=== PATIENT | female | born 2000 | race Asian ===

== ENCOUNTER 2022-04-01 08:02 | Emergency (ER) | payer OTHER, SELFPAY ==
[2022-04-01 08:12] VITALS: BP 124/79; PULSE 88; RESP 14; TEMP 36.2; O2SAT 98; BMI 24.5
[2022-04-01 08:24] LABS: MANUAL DIFF FLAG NO
[2022-04-01 08:25] LABS: Basophils Absolute Auto 0.1 X10*3/uL (0.0-0.2); Basophils Percent Auto 0.5 % (0-2); Eosinophils Absolute Auto 0.2 X10*3/uL (0.0-0.4); Eosinophils Percent Auto 1.7 % (0-4); Hematocrit 38.8 % (37.0-47.0); Hemoglobin 12.4 g/dl (12.0-16.0); Imm Gran Abs Auto 0.03 X10*3/uL (0.00-0.03); Imm Gran Pct Auto 0.3 % (0.0-0.4); Lymphocytes Absolute Auto 2.5 X10*3/uL (1.2-4.9); Lymphocytes Percent Auto 26.9 % (20-40); Mean Corpuscular Hemoglobin 26.4 pg (27.0-33.0); Mean Corpuscular Volume 82.7 fL (80.0-98.0); Mean Platelet Volume 12.4 fL (9.4-12.3); Monocytes Absolute Auto 0.6 X10*3/uL (0.1-1.2); Monocytes Percent Auto 6.6 % (2-11); Neutrophils Absolute Auto 5.9 x10*3/uL (2.0-8.3); Platelet Count 216 X10*3/uL (160-400); Red Blood Count 4.69 X10*6/uL (4.20-5.50); White Blood Count 9.3 X10*3/uL (4.8-10.8)
[2022-04-01 08:48] LABS: Alanine Aminotransferase 8 U/L (0-31); Albumin Level 4.4 g/dL (3.5-5.0); Alkaline Phosphatase 94 U/L (39-117); Anion Gap 13 (12-20); Aspartate Amino Transferase 15 U/L (5-31); Bilirubin Direct < 0.2 mg/dL (0.0-0.5); Bilirubin Total 0.6 mg/dL (0.0-1.0); Blood Urea Nitrogen 9 mg/dL (9-16); Calcium 9.5 mg/dL (8.4-10.2); Carbon Dioxide 23 mmol/L (22-29); Chloride 106 mmol/L (96-108); Creatinine Clr Calc Pharmacy 108.7; Estimated Glomerular Filt Rate > 60; Glucose Random 105 mg/dL (60-115); Lipase 16 U/L (8-78); Potassium 4.4 mmol/L (3.3-5.1); Sodium 138 mmol/L (135-145); Total Protein 7.1 g/dL (6.5-8.0)
[2022-04-01 09:46] LABS: Appearance Urine Clear; Color Urine Yellow; Glucose Urine UA Negative (Negative); Leukocyte Esterase Urine Negative (Negative); Nitrite Urine Negative (Negative); Specific Gravity - Urine >= 1.030 (1.005-1.025); Urine Blood Negative (Negative); Urine Ketones Negative (Negative); Urine Protein Negative (Neg-Trace)
[2022-04-01 09:47] LABS: UPreg QC Valid YES; Urine Pregnancy NEGATIVE (NEGATIVE)
[2022-04-01 10:35] VITALS: BP 107/69; PULSE 87; RESP 16; TEMP 36.7; O2SAT 100
--- NOTE | 2022-04-01 10:43 | ED_ITS ---
HPI - Abdominal Pain General Chief Complaint: Abdominal Pain Stated Complaint: stomach pains Time Seen by Provider: 04/01/22 09:52 Source: patient Mode of arrival: ambulatory History of Present Illness HPI narrative: 22-year-old female without significant past medical history other than a C- section 7 months ago presents with sharp mid suprapubic pain at that has not been associated with any fever, chills, nausea, vomiting, diarrhea, urinary pain/burning/frequency. Patient also denies any vaginal discharge but states that she is ?late on her period?. And although she has said this she then states that she has not had sexual intercourse in months. Related Data Allergies Allergy/AdvReac Type Severity Reaction Status Date / Time No Known Allergies Allergy Verified 04/01/22 08:15 Review of Systems Review of Systems Pertinent positives and negatives as stated in HPI 10 point review of systems ot herwise negative. PMFSH Past Medical History Source: nursing notes reviewed Medical History delivery delivered No known health problems Social History Social History Smoked in Last 30 Days: No Use of substances other than those prescribed or required for medical reasons: No Advance Directives: No Advance Directives Information Provided: Yes Patient : No Physical Exam ED Vital Signs: Vital Signs - 24 hr 04/01/22 08:12 04/01/22 10:35 Temperature 97.2 F 98.1 F Pulse Rate 88 87 Respiratory Rate 14 16 Blood Pressure 124/79 107/69 Pulse Oximetry 98 100 Oxygen Delivery Method Room Air Room Air BMI result Body Mass Index 24.5 VITAL SIGNS: Reviewed. GENERAL: Well developed, well nourished, in no acute distress. HEAD: Normocephalic/atraumatic EYES: PERRLA, EOMI LUNGS: Normal breath sounds. No adventitious sounds or accessory muscle use. SpO2<100> CARDIOVASCULAR: Regular rate and rhythm without noted murmurs ABDOMEN: Soft, non-tender, non-distended with bowel sounds. NEUROLOGIC: Alert and oriented x 4. Strength and sensation to light touch were grossly intact x 4. Medical Decision Making Medical Decision Making MDM Narrative: 22-year-old female with suprapubic pain and I have reviewed all investigations and my interpretation is that this may be related to musculoskeletal in nature as there is no evidence to suggest ectopic, UTI, traumatic, appendicitis, ovarian torsion. Patient was informed of all results and findings and d ischarged home in stable condition. She has follow-up with her primary care provider on . Differential Diagnosis Please see the discussion above Lab Data MDM Lab Attestation statement: I reviewed the patient's lab results. Please see the discussion above 04/01/22 08:20 04/01/22 08:20 Labs: Lab Results 04/01/22 04/01/22 04/01/22 Range/Units 08:20 08:20 09:38 WBC 9.3 (4.8-10.8) X10*3/uL RBC 4.69 (4.20-5.50) X10*6/uL Hgb 12.4 (12.0-16.0) g/dl Hct 38.8 (37.0-47.0) % MCV 82.7 (80.0-98.0) fL MCH 26.4 L (27.0-33.0) pg MCHC 32.0 (31.0-35.0) g/dl RDW 14.0 (11.0-16.0) % Plt Count 216 (160-400) X10*3/uL MPV 12.4 H (9.4-12.3) fL Immature Gran % (Auto) 0.3 (0.0-0.4) % Neut % (Auto) 64.0 (45-73) % Lymph % (Auto) 26.9 (20-40) % [place] % (Auto) 6.6 (2-11) % Eos % (Auto) 1.7 (0-4) % Baso % (Auto) 0.5 (0-2) % Lymph # (Auto) 2.5 (1.2-4.9) X10*3/uL [place] # (Auto) 0.6 (0.1-1.2) X10*3/uL Eos # (Auto) 0.2 (0.0-0.4) X10*3/uL Baso # (Auto) 0.1 (0.0-0.2) X10*3/uL Abs Immat Gran (auto) 0.03 (0.00-0.03) X10*3/uL Absolute Neuts (auto) 5.9 (2.0-8.3) x10*3/uL Absolute Nucleated RBC 0.000 (0.0-0.012) X10*3/uL Nucleated RBC % (auto) 0.0 (0.0-0.2) /100WBC Sodium 138 (135-145) mmol/L Potassium 4.4 (3.3-5.1) mmol/L Chloride 106 (96-108) mmol/L Carbon Dioxide 23 (22-29) mmol/L Anion Gap 13 (12-20) BUN 9 (9-16) mg/dL Creatinine 0.73 (0.5-1.4) mg/dL Estim Creat Clear Calc 108.7 Estimated GFR > 60 Random Glucose 105 (60-115) mg/dL Calcium 9.5 (8.4-10.2) mg/dL Total Bilirubin 0.6 (0.0-1.0) mg/dL Direct Bilirubin < 0.2 (0.0-0.5) mg/dL AST 15 (5-31) U/L ALT 8 (0-31) U/L Alkaline Phosphatase 94 (39-117) U/L Total Protein 7.1 (6.5-8.0) g/dL Albumin 4.4 (3.5-5.0) g/dL Lipase 16 (8-78) U/L Urine Color Yellow Urine Appearance Clear Urine pH 6.0 (5.0-9.0) Ur Specific [place] >= 1.030 H (1.005-1.025) Urine Protein Negative (Neg-Trace) mg/dL Urine Glucose (UA) Negative (Negative) mg/dL Urine Ketones Negative (Negative) mg/dL Urine Blood Negative (Negative) Urine Nitrite Negative (Negative) Ur Leukocyte Esterase Negative (Negative) Urine Test (NEGATIVE) 04/01/22 Range/Units 09:38 WBC (4.8-10.8) X10*3/uL RBC (4.20-5.50) X10*6/uL Hgb (12.0-16.0) g/dl Hct (37.0-47.0) % MCV (80.0-98.0) fL MCH (27.0-33.0) pg MCHC (31.0-35.0) g/dl RDW (11.0-16.0) % Plt Count (160-400) X10*3/uL MPV (9.4-12.3) fL Immature Gran % (Auto) (0.0-0.4) % Neut % (Auto) (45-73) % Lymph % (Auto) (20-40) % [place] % (Auto) (2-11) % Eos % (Auto) (0-4) % Baso % (Auto) (0-2) % Lymph # (Auto) (1.2-4.9) X10*3/uL [place] # (Auto) (0.1-1.2) X10*3/uL Eos # (Auto) (0.0-0.4) X10*3/uL Baso # (Auto) (0.0-0.2) X10*3/uL Abs Immat Gran (auto) (0.00-0.03) X10*3/uL Absolute Neuts (auto) (2.0-8.3) x10*3/uL Absolute Nucleated RBC (0.0-0.012) X10*3/uL Nucleated RBC % (auto) (0.0-0.2) /100WBC Sodium (135-145) mmol/L Potassium (3.3-5.1) mmol/L Chloride (96-108) mmol/L Carbon Dioxide (22-29) mmol/L Anion Gap (12-20) BUN (9-16) mg/dL Creatinine (0.5-1.4) mg/dL Estim Creat Clear Calc Estimated GFR Random Glucose (60-115) mg/dL Calcium (8.4-10.2) mg/dL Total Bilirubin (0.0-1.0) mg/dL Direct Bilirubin (0.0-0.5) mg/dL AST (5-31) U/L ALT (0-31) U/L Alkaline Phosphatase (39-117) U/L Total Protein (6.5-8.0) g/dL Albumin (3.5-5.0) g/dL Lipase (8-78) U/L Urine Color Urine Appearance Urine pH (5.0-9.0) Ur Specific [place] (1.005-1.025) Urine Protein (Neg-Trace) mg/dL Urine Glucose (UA) (Negative) mg/dL Urine Ketones (Negative) mg/dL Urine Blood (Negative) Urine Nitrite (Negative) Ur Leukocyte Esterase (Negative) Urine Test NEGATIVE (NEGATIVE) Discharge Plan Discharge Clinical Impression: Suprapubic pain Patient Disposition: Home, Self-Care Instructions: Heat Pack Application (ED) Additional Instructions: 1. Recommend [id number] Tylenol/ibuprofen as well as heating pad as needed for discomfort. 2. Please keep the scheduled appointment you have with your primary care provider. Return to the ER for any worsening symptoms. Referrals: Jennifer Eisenberg FNP [Primary Care Provider] -
== END 2022-04-01 10:53 | disposition home or self-care (01) ==
PROVIDERS: Emergency Provider Student in an Organized Health Care Education/Training Program; PCP Nurse Practitioner Family
DX: R10.30 Lower abdominal pain, unspecified (principal)
CPT/HCPCS: 36415; 80048; 80076; 81003; 81025; 83690; 85025; 99283; 99284

== ENCOUNTER 2022-05-04 09:51 | Outpatient (REF) | payer OTHER, SELFPAY ==
[2022-05-04 11:18] LABS: Anion Gap 14 (12-20); Blood Urea Nitrogen 10 mg/dL (9-16); Calcium 9.5 mg/dL (8.4-10.2); Carbon Dioxide 25 mmol/L (22-29); Chloride 107 mmol/L (96-108); Estimated Glomerular Filt Rate > 60; Glucose Random 105 mg/dL (60-115); Potassium 4.8 mmol/L (3.3-5.1); Sodium 141 mmol/L (135-145)
[2022-05-04 13:08] LABS: Vitamin B12 306 pg/mL (200-900); Vitamin D 25-OH Total 31.4 ng/mL (>30)
== END 2022-05-04 09:52 | disposition home or self-care (01) ==
LOC: HO.LAB 09:51
PROVIDERS: PCP Nurse Practitioner Family; Visit Provider Nurse Practitioner Family
DX: Z13.21 Encounter for screening for nutritional disorder (principal); Z13.29 Encounter for screening for other suspected endocrine disorder; Z13.1 Encounter for screening for diabetes mellitus
CPT/HCPCS: 36415; 80048; 82306; 82607; 84443

== ENCOUNTER 2022-08-21 09:59 | Outpatient (REF) | payer OTHER, SELFPAY ==
[2022-08-21 11:37] LABS: HBS Num1 > 1000.00 mIU/mL (0-7.99); ~Hepatitis B Surface Antibody REACTIVE (Nonreactive)
[2022-08-23 18:43] LABS: Mumps Virus IgG Antibody >300.00 AU/mL; Rubeola IgG (Measles) >300.00 AU/mL
== END 2022-08-21 10:00 | disposition home or self-care (01) ==
LOC: HO.LAB 09:59
PROVIDERS: PCP Nurse Practitioner Family; Visit Provider Nurse Practitioner Family
DX: Z01.84 Encounter for antibody response examination (principal); Z11.59 Encounter for screening for other viral diseases
CPT/HCPCS: 36415; 86706; 86735; 86762; 86765; 86774; 86787

== ENCOUNTER 2022-08-24 08:22 | Outpatient (REF) | payer OTHER, SELFPAY ==
--- NOTE | ~2022-08-24 | XR_ITS ---
EXAMINATION: XR CHEST CLINICAL INFORMATION: Nonspecific reaction to tuberculin skin test without active tuberculosis COMPARISON: None available. TECHNIQUE: 2 views of the chest were obtained. FINDINGS: No significant abnormality is noted involving the heart, lungs, mediastinum, bony thorax or soft tissues. XR/XR chest 2V IMPRESSION: Clear lungs.
== END 2022-08-24 08:23 | disposition home or self-care (01) ==
LOC: HO.XRAY 08:22
PROVIDERS: PCP Nurse Practitioner Family; Visit Provider Internal Medicine
DX: R76.11 Nonspecific reaction to tuberculin skin test without active tuberculosis (principal)
CPT/HCPCS: 71046

== ENCOUNTER 2022-09-21 13:55 | Outpatient (AMB) | payer OTHER, SELFPAY ==
[2022-09-21 14:12] VITALS: BP 100/60; PULSE 88; O2SAT 98; BMI 22.3
--- NOTE | 2022-09-21 14:12 | A.OFFPC_ITS ---
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 Patient presents today for physical exam. Patient denies any acute complaints, denies any feelings of anxiety depression. Pap smear: Patient states she missed her appointment when she was traveling, states she will call them to reschedule. Eye exam: Recommended every couple years. Patient given dental information. 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 Patient dropped off college school form that needs completion, once records received on immunizations will formal be completed and patient will be notified. [facility] Medical History (Updated 09/21/22 @ 14:21 by ELENA Eaton) delivery delivered Generalized anxiety disorder Mild depression No known health problems Family History Father Lung cancer HTN (hypertension) Diabetes Mother No problems noted. Social History (Updated 05/04/22 @ 09:19 by ELENA Eaton) Housing: Apartment Alcohol intake: current Alcohol intake frequency: holidays/special occasions only Patient Tobacco Use Status: Never used Tobacco Tobacco use type: Cigarette e-Cigarette/Vaping Use: Never Used service: No Current occupational status: employed Current occupation: Part-Time. Cognitive needs: No Hearing needs: No Vision needs: No Female Reproductive History Menstrual Age of Menarche: 12 Questionnaire PHQ-9 Over the last 2 weeks, how often have you been bothered by any of the following problems? 1. Little interest or pleasure in doing things: not at all 2. Feeling down, depressed, or hopeless: more than half the days 3. Trouble falling or staying asleep, or sleeping too much: more than half the days 4. Feeling tired or having little energy: more than half the days 5. Poor appetite or overeating: not at all 6. Feeling bad about yourself - or that you are a failure or have let yourself or your family down: not at all 7. Trouble concentrating on things, such as reading the newspaper or watching television: not at all 8. Moving or speaking so slowly that other people could have noticed. Or the opposite - being so fidgety or restless that you have been moving around a lot more than usual: not at all 9. Thoughts that you would be better off or of hurting yourself in some way: not at all Total score: 6 Depression Screening Interpretation: Positive 54341 - PHQ-9 Billing: Yes Source: Developed by Drs. Josué Schwartz, Donna Bro, Derek Mcnamara and colleagues, with an educational gen from [employer]. Thrive Questionnaire Date Thrive assessed: 09/21/22 I am a: Patient What is your living situation today?: I have a steady place to live Within the past 12 months, did the food you bought not last and you didn't have the money to get more?: Never true Within the past 12 months, did you worry whether your food would run out before you got money to buy more?: Never true Do you have trouble paying for medicines?: No Do you have trouble getting transportation to medical appointments?: No Do you have trouble paying your heating and electricity bill?: No Do you have trouble taking care of your child, family member or friend?: No Do you have trouble with day-to-day activities such as bathing, preparing meals, shopping, managing finances, etc.?: No Are you currently unemployed and looking for a job?: No Are you interested in more education?: No Please select the resources that you would like help with: None Currently or been in a relationship where the following occur: no concerns re ported AUDIT C Alcohol Use Questionnaire (AUDIT-C) 1. How often do you have a drink containing alcohol?: Never Total Score: 0 JOVON-7 AMB Questionnaire JOVON-7 Date JOVON - 7 assessed: 09/21/22 Feeling nervous, anxious, or on edge: 0 = Not at all Not being able to stop or control worryin = Not at all Worrying too much about different things: 0 = Not at all Trouble relaxin = Not at all Being so restless that it is hard to sit still: 0 = Not at all Becoming easily annoyed or irritable: 0 = Not at all Feeling afraid as if something awful might happen: 0 = Not at all Total JOVON-7 score (0-4 normal; 5-9 mild; 10-14 moderate; 15-21 severe): 0 Source: Developed by Drs. Josué Schwartz, Donna Bro, Derek Mcnamara and colleagues, with an educational gen from [employer]. JOVON-7 Assessment Billing JOVON-7 Assessment Tool: JOVON-7 Assessment 05610 Review of Systems Const Denies chills, Denies fatigue, Denies fever(s) and Denies poor appetite Eyes Denies no additional complaints ENT Reports Normal hearing present Card Denies chest pain, Denies syncope, Denies rapid heart rate and Denies dyspnea Resp Denies cough and Denies dyspnea GI Denies change in stool character, Denies constipation, Denies diarrhea, Denies nausea and Denies vomiting Denies urinary frequency, Denies dysuria and Denies urinary urgency Neuro Reports Normal hearing present, Denies confusion and Denies syncope Psych Denies confusion Endo Denies fatigue Physical exam (Primary Care) Vital Signs: Last Vital Signs Pulse 88 09/21/22 14:12 BP 100/60 09/21/22 14:12 Pulse Ox 98 09/21/22 14:12 Oxygen Delivery Method Room Air 09/21/22 14:12 BMI result Body Mass Index 22.3 Tobacco/Smoking Status: Tobacco use Status Tobacco use date assessed 09/21/22 09/21/22 14:17 Patient Tobacco Use Status Never used Tobacco 09/21/22 14:17 Tobacco use type Cigarette 09/21/22 14:17 e-Cigarette/Vaping Use Never Used 09/21/22 14:17 PHQ-9: PHQ-9 Score PHQ-9: Total score 6 09/21/22 14:17 Depression Screening Interpretation: Positive Thrive Assessment: Date of Thrive Assessment Date Thrive assessed 09/21/22 09/21/22 14:17 Currently or been in a relationship where the following occur: no concerns reported Const General: No confusion Orientation/consciousness: No confusion HENMT Head: Yes normocephalic and Yes atraumatic Ears: external ears normal and TM's normal bilaterally General nose exam: Normal external nose present and Normal nasal mucous membranes and turbinates present Face and sinus: Yes normal facial exam and Yes sinuses nontender Mouth: moist mucous membranes Throat: Yes tonsils normal Eyes Conjunctivae: conjunctivae normal Sclerae: sclerae normal Pupils: Equal, round and reactive pupils present and Pupils normal by confrontation EOM: EOMs intact bilaterally Direct Ophthalmoscopy: normal light reflex Neck Neck: Yes no lymphadenopathy and Yes supple Thyroid: Thyroid normal Chest Chest palpation & inspection: normal inspection of the chest Resp Effort & Inspection: normal respiratory effort Auscultation: clear to auscultation bilaterally, no crackles, no rhonchi and no wheezes Cardio Rate: regular rate Rhythm: regular rhythm Peripheral pulses: radial pulses present and dorsalis pedis present GI Inspection: Yes normal to inspection Palpation (GI): Soft to palpation, nontender and No hepatosplenomegaly present Auscultation: normoactive bowel sounds Skin General skin exam: no rashes or lesions noted Neuro General: No confusion Cranial nerves: Yes Equal, round and reactive pupils present and Yes Normal hearing present Cognition (Neuro): normal cognition Gait exam (Neuro): Normal gait present Motor exam (neuro): 5/5 motor strength present throughout Deep tendon reflexes (DTR's): Right brachioradialis reflex intensity grade: 2+, Left brachioradialis reflex intensity grade: 2+, Right patellar reflex intensity grade: 2+ and Left patellar reflex intensity grade: 2+ Extrem General: No edema Assessment and Plan Assessment & Plan (1) Physical exam, annual: Code(s): Z00.00 - Encounter for general adult medical examination without abnormal findings Plan: Follow up in 1 year for physical exam. Plan Follow up in 1 year for physical exam or sooner if needed. Coding Level of Care Code Est Pt Prev Care 18-39y(70631) Diagnoses Physical exam, annual Z00.00 Additional Codes JOVON-7 Assessment Billing - JOVON-7 Assessment Tool: JOVON-7 Assessment [id number] ([id number])
== END 2022-09-21 14:46 | disposition home or self-care (01) ==
PROVIDERS: PCP Nurse Practitioner Family; Visit Provider Nurse Practitioner Family
DX: Z00.00 Encounter for general adult medical examination without abnormal findings (principal)
CPT/HCPCS: 99395

== ENCOUNTER 2022-12-01 11:40 | Outpatient (AMB) | payer OTHER, SELFPAY ==
[2022-12-01 12:03] VITALS: BP 102/62; PULSE 99; O2SAT 98; BMI 22.0
--- NOTE | 2022-12-01 12:03 | MHC.PC.OV ---
Vital Signs 12/01/22 12:03 Height 5 ft 5 in Weight 132 lb BMI 22.0 BP 102/62 Blood Pressure Location Lt brachial Position Sitting Pulse 99 Pulse Source Pulse Oximeter Pulse Oximetry (%) 98 Oxygen Delivery Method Room Air Intake Visit Reasons: Lump on butt Allergies No Known Allergies Allergy (Verified 12/01/22 12:06) Tobacco use date assessed: 09/21/22 Dental Screening Dental Screen Date: 12/01/22 Did you have a dental visit in the last 12 months?: Yes Did you have a dental problem in the last 6 months where you did not have access to dental care?: No Was dental information given to patient?: Patient has dentist HPI HPI Comments History of Present Illness Details 22-year-old female past medical history significant for generalized anxiety disorder and depression. For lump on her left gluteus. Patient reports has been there since having her daughter 1 year ago. Patient reports she was getting injections into her left glute with pain medication. Patient denies any pain, erythema and drainage from the site. Patient also requesting medical marijuana card, patient made aware we do not prescribe medical marijuana card urine she will to find a licensed prescriber for this. Patient verbalizes understanding. COUNT INCLUDES THE [facility] Medical History (Updated 12/01/22 @ 12:41 by ELENA Eaton) Mild depression Generalized anxiety disorder delivery delivered No known health problems Family History Father Lung cancer HTN (hypertension) Diabetes Mother No problems noted. Social History (Updated 05/04/22 @ 09:19 by ELENA Eaton) Housing: Apartment Alcohol intake: current Alcohol intake frequency: holidays/special occasions only Patient Tobacco Use Status: Never used Tobacco Tobacco use type: Cigarette e-Cigarette/Vaping Use: Never Used service: No Current occupational status: employed Current occupation: Part-Time. Cognitive needs: No Hearing needs: No Vision needs: No Female Reproductive History Menstrual Age of Menarche: 12 Questionnaire PHQ-9 Over the last 2 weeks, how often have you been bothered by any of the following problems? 1. Little interest or pleasure in doing things: not at all 2. Feeling down, depressed, or hopeless: more than half the days 3. Trouble falling or staying asleep, or sleeping too much: more than half the days 4. Feeling tired or having little energy: more than half the days 5. Poor appetite or overeating: not at all 6. Feeling bad about yourself - or that you are a failure or have let yourself or your family down: not at all 7. Trouble concentrating on things, such as reading the newspaper or watching television: not at all 8. Moving or speaking so slowly that other people could have noticed. Or the opposite - being so fidgety or restless that you have been moving around a lot more than usual: not at all 9. Thoughts that you would be better off or of hurting yourself in some way: not at all Total score: 6 Depression Screening Interpretation: Positive Depression Screening Done: Yes 01819 - PHQ-9 Billing: Yes Source: Developed by Drs. Josué Schwartz, Donna Bro, Derek Mcnamara and colleagues, with an educational gen from [employer]. Thrive Questionnaire Date Thrive assessed: 09/21/22 AUDIT C Alcohol Use Questionnaire (AUDIT-C) 1. How often do you have a drink containing alcohol?: Never Total Score: 0 JOVON-7 AMB Questionnaire JOVON-7 Date JOVON - 7 assessed: 09/21/22 Source: Developed by Drs. Josué Schwartz, Donna Bro, Derek Mcnamara and colleagues, with an educational gen from [employer]. Review of Systems Const Denies chills, Denies fatigue, Denies fever(s) and Denies poor appetite Eyes Denies no additional complaints ENT Reports Normal hearing present Card Denies chest pain, Denies syncope, Denies rapid heart rate and Denies dyspnea Resp Denies cough and Denies dyspnea GI Denies change in stool character, Denies constipation, Denies diarrhea, Denies nausea and Denies vomiting Denies urinary frequency, Denies dysuria and Denies urinary urgency Neuro Reports Normal hearing present, Denies confusion and Denies syncope Psych Denies confusion Endo Denies fatigue Physical exam (Primary Care) Vital Signs: Last Vital Signs Pulse 99 12/01/22 12:03 BP 102/62 12/01/22 12:03 Pulse Ox 98 12/01/22 12:03 Oxygen Delivery Method Room Air 12/01/22 12:03 BMI result Body Mass Index 22.0 Tobacco/Smoking Status: Tobacco use Status Tobacco use date assessed 09/21/22 12/01/22 12:03 Patient Tobacco Use Status Never used Tobacco 12/01/22 12:03 Tobacco use type Cigarette 12/01/22 12:03 e-Cigarette/Vaping Use Never Used 12/01/22 12:03 PHQ-9: PHQ-9 Score PHQ-9: Total score 6 12/01/22 12:10 Depression Screening Interpretation: Positive Thrive Assessment: Date of Thrive Assessment Date Thrive assessed 09/21/22 12/01/22 12:03 Const General: No confusion Orientation/consciousness: No confusion HENMT Head: Yes normocephalic and Yes atraumatic Eyes Conjunctivae: conjunctivae normal Chest Chest palpation & inspection: normal inspection of the chest Resp Effort & Inspection: normal respiratory effort Auscultation: clear to auscultation bilaterally, no crackles, no rhonchi and no wheezes Cardio Rate: regular rate Rhythm: regular rhythm Heart sounds: S1 normal heart sound present and S2 normal heart sound present GI Inspection: Yes normal to inspection Skin Full body images: 1. approximately 1 cm firm nodular, no erythema or drainage noted. Neuro General: No confusion Cranial nerves: Yes Normal hearing present Extrem General: No edema Assessment and Plan Assessment & Plan (1) Lipoma of buttock: Code(s): D17.1 - Benign lipomatous neoplasm of skin and subcutaneous tissue of trunk Plan: left gluteus buttock lipoma versus cyst, no signs and symptoms of infection. Offered referral to General surgery if bothering patient for removal. Patient declines at this time Signs and symptoms reviewed with patient when to seek medical attention or follow-up with PCP. Plan Keep scheduled physical exam. Coding Level of Care Code Est Pt Level 3 (84852) Diagnoses Lipoma of buttock D17.1
== END 2022-12-01 13:06 | disposition home or self-care (01) ==
PROVIDERS: PCP Nurse Practitioner Family; Visit Provider Nurse Practitioner Family
DX: D17.1 Benign lipomatous neoplasm of skin and subcutaneous tissue of trunk (principal)
CPT/HCPCS: 99213

== ENCOUNTER 2022-12-22 10:16 | Outpatient (AMB) | payer OTHER, SELFPAY ==
[2022-12-22 10:32] VITALS: BP 102/70; PULSE 79; O2SAT 100; BMI 21.8
--- NOTE | 2022-12-22 10:32 | MHC.PC.OV ---
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 Patient presents today for same day visit for [place] piercing infection of left ear. Patient reports got her left ear helix peeled 2 weeks ago and states she waited the necessary 2 weeks prior to changing the earring. Patient reports that after changing the earring that she developed throbbing ear pain and tenderness and does have red lump to ER with serous drainage. Patient reports she has not been cleaning the piercing site daily. Denies any fever and chills. [facility] Medical History (Updated 12/22/22 @ 11:50 by ELENA Eaton) Lipoma of buttock Positive PPD Mild depression Generalized anxiety disorder delivery delivered No known health problems Family History Father Lung cancer HTN (hypertension) Diabetes Mother No problems noted. Social History (Updated 05/04/22 @ 09:19 by ELENA Eaton) Housing: Apartment Alcohol intake: current Alcohol intake frequency: holidays/special occasions only Patient Tobacco Use Status: Never used Tobacco Tobacco use type: Cigarette e-Cigarette/Vaping Use: Never Used service: No Current occupational status: employed Current occupation: Part-Time. Cognitive needs: No Hearing needs: No Vision needs: No Female Reproductive History Menstrual Age of Menarche: 12 Questionnaire Thrive Questionnaire Date Thrive assessed: 09/21/22 AUDIT C Alcohol Use Questionnaire (AUDIT-C) 1. How often do you have a drink containing alcohol?: Never Total Score: 0 JOVON-7 AMB Questionnaire JOVON-7 Date JOVON - 7 assessed: 09/21/22 Source: Developed by Drs. Josué Schwartz, Donna Bro, Derek Mcnamara and colleagues, with an educational gen from [employer] ([employer] Review of Systems Const Denies chills, Denies fatigue, Denies fever(s) and Denies poor appetite Eyes Denies no additional complaints ENT Reports Normal hearing present and Reports other (left ear piercing infection ) Card Denies chest pain, Denies syncope, Denies rapid heart rate and Denies dyspnea Resp Denies cough and Denies dyspnea GI Denies change in stool character, Denies constipation, Denies diarrhea, Denies nausea and Denies vomiting Denies urinary frequency, Denies dysuria and Denies urinary urgency Neuro Reports Normal hearing present, Denies confusion and Denies syncope Psych Denies confusion Endo Denies fatigue Physical exam (Primary Care) Vital Signs: Last Vital Signs Pulse 79 12/22/22 10:32 BP 102/70 12/22/22 10:32 Pulse Ox 100 12/22/22 10:32 Oxygen Delivery Method Room Air 12/22/22 10:32 BMI result Body Mass Index 21.8 Tobacco/Smoking Status: Tobacco use Status Tobacco use date assessed 12/22/22 12/22/22 10:37 Patient Tobacco Use Status Never used Tobacco 12/22/22 10:37 Tobacco use type Cigarette 12/22/22 10:37 e-Cigarette/Vaping Use Never Used 12/22/22 10:37 Thrive Assessment: Date of Thrive Assessment Date Thrive assessed 09/21/22 12/22/22 10:37 Const General: No confusion Orientation/consciousness: No confusion [facility] Head: Yes normocephalic and Yes atraumatic Head images: 1. erythematous localized edema noted around ear piercing with serous drainage. Eyes Conjunctivae: conjunctivae normal Chest Chest palpation & inspection: normal inspection of the chest Resp Effort & Inspection: normal respiratory effort Auscultation: clear to auscultation bilaterally, no crackles, no rhonchi and no wheezes Cardio Rate: regular rate Rhythm: regular rhythm Heart sounds: S1 normal heart sound present and S2 normal heart sound present GI Inspection: Yes normal to inspection Neuro General: No confusion Cranial nerves: Yes Normal hearing present Extrem General: No edema Assessment and Plan Assessment & Plan (1) Infection of left pierced ear: Code(s): S01.332A - Puncture wound without foreign body of left ear, initial encounter; L08.9 - Local infection of the skin and subcutaneous tissue, unspecified Plan: Cephalexin 500 mg b.i.d. sent to patient's pharmacy. Patient advised to wash piercing site twice daily with anti bacterial unscented soap x 2 weeks. Signs and symptoms reviewed with patient when to follow-up or seek medical attention. Plan Follow-up as needed Medications: New cephalexin 500 mg PO BID 20 caps 0RF L08.9 - Local infection of the skin and subcutaneous tissue, unspecified, S01.332A - Puncture wound without foreign body of left ear, initial encounter Coding Level of Care Code Est Pt Level 3 (37703) Diagnoses Infection of left pierced ear S01.332A; L08.9
== END 2022-12-22 11:08 | disposition home or self-care (01) ==
PROVIDERS: PCP Nurse Practitioner Family; Visit Provider Nurse Practitioner Family
DX: S01.332A Puncture wound without foreign body of left ear, initial encounter (principal); L08.9 Local infection of the skin and subcutaneous tissue, unspecified
CPT/HCPCS: 99213

== ENCOUNTER 2023-07-03 12:19 | Emergency (ER) | payer OTHER, SELFPAY ==
--- NOTE | ~2023-07-03 | XR_ITS ---
EXAMINATION: XR CHEST CLINICAL INFORMATION: History of latent TB. Coughing up blood. COMPARISON: Chest radiograph dated 08/24/2022. TECHNIQUE: 2 views of the chest were obtained. FINDINGS: The cardiac silhouette is normal in size. Both lungs are clear. There is no pleural effusion or pneumothorax. No acute osseous abnormality. XR/XR chest 2V IMPRESSION: No acute cardiopulmonary disease.
[2023-07-03 12:31] VITALS: BP 111/72; PULSE 79; RESP 18; TEMP 36.8; O2SAT 100; BMI 21.9
--- NOTE | 2023-07-03 12:34 | ED_ITS ---
HPI - General Adult General Chief complaint: Upper Respiratory Symptoms Stated complaint: Nose Bleeds Time Seen by Provider: 07/03/23 16:34 Source: patient, RN notes reviewed and old records reviewed Mode of arrival: ambulatory Limitations: no limitations History of Present Illness HPI narrative: 23 year old female with pmhx significant for latent TB (2015), JOVON, and MDD presents to the ED today for evaluation of coughing up blood and multiple episodes of epistaxis x2-3 weeks. She reports intermittent nosebleeds over the past few weeks. This past week she began coughing up bloody sputum. Endorses associated night sweats and fatigue that began 1 week ago. Denies sick contacts. Denies recent tick or insect bites. Denies bleeding/clotting disorders. Admits to diagnosis of latent TB back in 2015 after visit to [facility]. States she was treated at the time however was never re-tested to ensure resolution. Admits to then spending 4 years in [place] prior to [place] in [place]. Admits this feels slimilar to previous TB. Denies fevers, chills, headache, dizziness, joint swelling, LE pain/swelling. Denies recent travel or long car rides. Related Data Previous Rx's ?Medication ?Instructions ?Recorded cephalexin 500 mg capsule 500 mg PO BID #20 caps 12/22/22 oxymetazoline 0.05 % nasal spray 2 spray intranasal BID PRN nose 07/03/23 (Afrin Sinus (oxymetazoline)) bleed 3 days #30 mL Allergies Allergy/AdvReac Type Severity Reaction Status Date / Time No Known Allergies Allergy Verified 07/03/23 12:36 Review of Systems 2 Review of Systems: Constitutional: No fever, chills, weight changes, +fatigue, +night sweats ENT/Mouth: No ear pain, hearing loss, nasal congestion, sinus pain, rhinorrhea, sore throat, +epistaxis Eyes: No eye pain, swelling, redness, vision changes, discharge Cardio: No chest pain, palpitations, URIOSTEGUI, orthopnea, peripheral edema Pulm: No SOB, cough, sputum, wheezing, dyspnea, +hemoptysis GI: No nausea, vomiting, hematemesis, abdominal pain, diarrhea, constipation, hematochezia, melena : No irregular bleeding, dysuria, frequency, urgency, hesitancy, hematuria, flank pain, urinary flow changes, urinary incontinence or retention MSK: No back pain, neck pain, joint pain, myalgias Skin: No lesions, rashes Neuro: No weakness, numbness, paresthesias, LOC, dizziness, headache Psych: No anxiety/panic, depression, SI/HI, AH/VH All other systems reviewed and are negative. [facility] Past Medical History Attestation statement: The following information was validated with the patient. Source: old records reviewed and nursing notes reviewed Medical History Lipoma of buttock Positive PPD Mild depression Generalized anxiety disorder delivery delivered No known health problems Family History Family History Father Lung cancer HTN (hypertension) Diabetes Mother No problems noted. Social History Social History Housing: Apartment Alcohol intake: current Alcohol intake frequency: holidays/special occasions only Patient Tobacco Use Status: Never used Tobacco Tobacco use type: Cigarette e-Cigarette/Vaping Use: Never Used Advance Directives: No Advance Directives Information Provided: No Do you have a plan to hurt others: No Plan service: No Current occupational status: employed Current occupation: Part-Time. Cognitive needs: No Hearing needs: No Vision needs: No Physical Exam ED Vital Signs: Vital Signs - 24 hr 07/03/23 19:22 Temperature 98.3 F Pulse Rate 79 Respiratory Rate 18 Blood Pressure 111/72 Pulse Oximetry 100 Oxygen Delivery Method Room Air BMI result Body Mass Index 21.9 Vital signs stable Const General: cooperative, healthy appearing, comfortable and no acute distress Orientation/consciousness: patient oriented x3 Limitations: no limitations [facility] Head: Yes normal to inspection, Yes No palpable skull fracture present, Yes normocephalic and Yes atraumatic General nose exam: Normal external nose present, Normal nares present, Normal nasal mucous membranes and turbinates present, Normal septum present, No nasal discharge present and no epistaxis Eyes General: appearance normal, both eyes and all related structures Conjunctivae: conjunctivae normal Sclerae: sclerae normal Pupils: Equal, round and reactive pupils present Neck Neck: Yes normal visual inspection, Yes no lymphadenopathy and Yes no meningeal signs Chest Chest palpation & inspection: normal inspection of the chest and normal palpation of entire chest wall Resp Effort & Inspection: normal respiratory effort and able to speak in complete sentences Auscultation: clear to auscultation bilaterally Cardio Rate: regular rate Rhythm: regular rhythm GI Inspection: Yes normal to inspection Palpation (GI): Soft to palpation Back/Spine/Pelvis Other: No midline spinous tenderness or step off deformity. No paraspinal muscle tenderness. Skin General skin exam: no rashes or lesions noted Neuro General: patient oriented x3, gait normal, tone normal and no meningeal signs Cranial nerves: Yes Equal, round and reactive pupils present Extrem General: Yes normal to inspection Course Course Course Narrative: RME: Triage written by TAYLOR Byers. Patient presents to ED for 2-3 weeks of coughing up blood and multiple episodes of nosebleed. Patient states also feeling lethargic. No active bleeding presently. Physical exam negative for swelling of joints. No nosebleed. Labs ordered Reevaluation(s) Reevaluation #1: 5260 -- CBC without leukocytosis or left shift. no anemia. coags wnl. dimer negative > PE unlikely. chemistry without acute electrolyte abnormality requiring intervention. normal renal and liver function. serum beta hcg undetectable > not . she has tested negative for covid, flu, and rsv. cxr does not demonstrate consolidation or infiltrate. no signs of TB. unremarkable. > discussed case and work up with my attending Dr. Mon who agrees that coughing bloody sputum likely secondary to recent nose bleed. Discussed work up results with patient. Unclear etiology of nosebleeds. Suspect due to recent weather changes. Afrin sent to pharmacy. Advised to follow up with PCP. Patient has remained stable throughout ED visit today. Discussed worrisome signs and symptoms and when to return to the ED. All questions answered at this time. Patient is agreeable with disposition and stable for discharge. Medical Decision Making Medical Decision Making [facility] Narrative: 23 year old female with pmhx significant for latent TB in 2016, JOVON, and MDD presents to the ED today for evaluation of coughing up blood and multiple episodes of epistaxis x2-3 weeks. Vital signs stable. Afebrile. Patient well appearing and in NAD. No active bleeding. No pallor noted to skin. Skin W/D/I. RRR. lungs are cta bilatearlly. no calf tenderness b/l. no notable joint effusions. Differential diagnosis includes anemia, clotting disorder, dehydration, electrolyte abnormality, pneumonia, PE, TB, viral syndrome Plan for labs, viral serology, CXR. Differential Diagnosis Differential Diagnoses: The differential diagnosis associated with the presentation includes as above. Admission/Observation Consideration of admission/observation: Escalation of care including admission/observation considered Admission considered on presentation. Lab Data MDM Lab Attestation statement: I reviewed the patient's lab results. as above. 07/03/23 14:34 07/03/23 14:34 Labs: Lab Results 07/03/23 Range/Units 14:34 WBC 9.1 (4.8-10.8) X10*3/uL RBC 4.85 (4.20-5.50) X10*6/uL Hgb 13.0 (12.0-16.0) g/dl Hct 41.4 (37.0-47.0) % MCV 85.4 (80.0-98.0) fL MCH 26.8 L (27.0-33.0) pg MCHC 31.4 (31.0-35.0) g/dl RDW 12.7 (11.0-16.0) % Plt Count 295 D (160-400) X10*3/uL MPV 11.9 (9.4-12.3) fL Immature Gran % (Auto) 0.6 H (0.0-0.4) % Neut % (Auto) 67.0 (45-73) % Lymph % (Auto) 23.2 (20-40) % [place] % (Auto) 5.2 (2-11) % Eos % (Auto) 3.6 (0-4) % Baso % (Auto) 0.4 (0-2) % Lymph # (Auto) 2.1 (1.2-4.9) X10*3/uL [place] # (Auto) 0.5 (0.1-1.2) X10*3/uL Eos # (Auto) 0.3 (0.0-0.4) X10*3/uL Baso # (Auto) 0.0 (0.0-0.2) X10*3/uL Abs Immat Gran (auto) 0.05 H (0.00-0.03) X10*3/uL Absolute Neuts (auto) 6.1 (2.0-8.3) x10*3/uL Absolute Nucleated RBC 0.000 (0.0-0.012) X10*3/uL Nucleated RBC % (auto) 0.0 (0.0-0.2) /100WBC PT 12.8 (11.1-13.3) SEC INR 1.1 (0.9-1.1) APTT 36.0 (26.0-36.8) SEC D-Dimer High Sensitivty < 150 NG/ML Sodium 140 (135-145) mmol/L Potassium 4.5 (3.3-5.1) mmol/L Chloride 105 (96-108) mmol/L Carbon Dioxide 26 (22-29) mmol/L Anion Gap 14 (12-20) BUN 10 (9-16) mg/dL Creatinine 0.69 (0.5-1.4) mg/dL Estim Creat Clear Calc 109.5 Estimated GFR > 60 Random Glucose 94 (60-115) mg/dL Calcium 9.9 (8.4-10.2) mg/dL Total Bilirubin 0.2 (0.0-1.0) mg/dL AST 16 (5-31) U/L ALT 10 (0-31) U/L Alkaline Phosphatase 91 (39-117) U/L Total Protein 8.0 (6.5-8.0) g/dL Albumin 4.6 (3.5-5.0) g/dL Beta HCG, Quant < 2 mIU/mL Influenza Type A (PCR) NEGATIVE (Negative) Influenza Type B (PCR) NEGATIVE (Negative) RSV RNA Qual (PCR) NEGATIVE (Negative) SARS-CoV-2 RNA (RT-PCR) NEGATIVE (Negative) Independent Interpretation I performed an independent interpretation of an: Plain X-Ray Interpretation: Chest x-ray without infiltrate or consolidation, agree with radiologist's interpretation. Radiology Impression Discussion of test interpretation with radiology: I have reviewed the radiologist's reading. Radiologist Impression: EXAMINATION: XR CHEST CLINICAL INFORMATION: History of latent TB. Coughing up blood. COMPARISON: Chest radiograph dated 08/24/2022. TECHNIQUE: 2 views of the chest were obtained. FINDINGS: The cardiac silhouette is normal in size. Both lungs are clear. There is no pleural effusion or pneumothorax. No acute osseous abnormality. XR/XR chest 2V IMPRESSION: No acute cardiopulmonary disease. External Record Review External record reviewed: Inpatient record Prescription Management I considered prescription management with: Other (afrin) Chronic Conditions Patient?s care impacted by: Other (latent TB) Social Determinants Patient?s care significantly limited by Social Determinants of Health including: Other Social Determinant of Health Critical Care Time Critical Care Time Critical Care Time: Yes Total Critical Care Time: 38 Attestation: Critical care time in the amount of 38 minutes has been provided to the patient in terms of direct patient care, frequent reevaluation, review and interpretation of medical data and results, and management of potentially life- threatening conditions. This is all outside of any medical procedures. Discharge Plan Discharge Clinical Impression: Epistaxis, Coughing up blood Patient Disposition: Home, Self-Care Instructions: Oxymetazoline (Into the nose), Nosebleed (ED) Additional Instructions: Your lab work today is reassuring. It did not show anemia. Your blood work is negative for blood clot. Your chest x-ray does not show signs of pneumonia or TB. You are likely coughing up blood secondary to nosebleed. If your nose begins to bleed, use Afrin spray and clamp for 15 minutes. Avoid hot beverages for the next 2-3 days as this can increase chance nose bleeding. Follow up with PCP. If you do not have one, a referral has been provided to you. You may call to make an appointment. Return with new or worsening symptoms. In the case of an emergency call 911. Prescriptions: New oxymetazoline [Afrin Sinus (oxymetazoline)] 0.05 % spray,non-aerosol 2 spray intranasal BID PRN (Reason: nose bleed) 3 Days Qty: 30 0RF No Action cephalexin 500 mg capsule 500 mg PO BID Qty: 20 0RF Referrals: [facility] Family Medicine [Provider Group] [facility] [Provider Group] [facility] [Provider Group] Jennifer Eisenberg FNP [Primary Care Provider] - Richard Catalan [Physician] - Interventions: ED Discharge Assessment Last Done: 07/03/23 19:22 Discharge Date/Time: 07/03/23 19:22 Print Language: Icelandic
[2023-07-03 14:38] LABS: MANUAL DIFF FLAG NO
[2023-07-03 14:40] LABS: Basophils Percent Auto 0.4 % (0-2); Eosinophils Absolute Auto 0.3 X10*3/uL (0.0-0.4); Eosinophils Percent Auto 3.6 % (0-4); Hematocrit 41.4 % (37.0-47.0); Imm Gran Abs Auto 0.05 X10*3/uL (0.00-0.03); Imm Gran Pct Auto 0.6 % (0.0-0.4); Lymphocytes Absolute Auto 2.1 X10*3/uL (1.2-4.9); Lymphocytes Percent Auto 23.2 % (20-40); Mean Corpuscular HGB Conc 31.4 g/dl (31.0-35.0); Mean Corpuscular Hemoglobin 26.8 pg (27.0-33.0); Mean Corpuscular Volume 85.4 fL (80.0-98.0); Mean Platelet Volume 11.9 fL (9.4-12.3); Monocytes Absolute Auto 0.5 X10*3/uL (0.1-1.2); Monocytes Percent Auto 5.2 % (2-11); Neutrophils Absolute Auto 6.1 x10*3/uL (2.0-8.3); Platelet Count 295 X10*3/uL (160-400); Red Blood Count 4.85 X10*6/uL (4.20-5.50); Red Cell Distribution Width 12.7 % (11.0-16.0); White Blood Count 9.1 X10*3/uL (4.8-10.8)
[2023-07-03 14:49] LABS: INTERNATIONAL NORM RATIO 1.1 (0.9-1.1); Prothrombin Time 12.8 SEC (11.1-13.3)
[2023-07-03 14:54] LABS: Alanine Aminotransferase 10 U/L (0-31); Albumin Level 4.6 g/dL (3.5-5.0); Alkaline Phosphatase 91 U/L (39-117); Anion Gap 14 (12-20); Aspartate Amino Transferase 16 U/L (5-31); Bilirubin Total 0.2 mg/dL (0.0-1.0); Blood Urea Nitrogen 10 mg/dL (9-16); Calcium 9.9 mg/dL (8.4-10.2); Carbon Dioxide 26 mmol/L (22-29); Chloride 105 mmol/L (96-108); Creatinine Clr Calc Pharmacy 109.5; Estimated Glomerular Filt Rate > 60; Glucose Random 94 mg/dL (60-115); Potassium 4.5 mmol/L (3.3-5.1); Sodium 140 mmol/L (135-145)
[2023-07-03 15:02] LABS: HCG Quantitative < 2 mIU/mL
[2023-07-03 15:36] LABS: Influenza A PCR NEGATIVE (Negative); Influenza B PCR NEGATIVE (Negative); Resp Syncy Virus RNA Qual PCR NEGATIVE (Negative); SARS COV2 PCR INHOUSE NEGATIVE (Negative)
[2023-07-03 16:55] LABS: D Dimer High Sensitivity < 150 NG/ML
[2023-07-03 19:22] VITALS: BP 111/72; PULSE 79; RESP 18; TEMP 36.8; O2SAT 100
== END 2023-07-03 19:22 | disposition home or self-care (01) ==
PROVIDERS: Physician Assistant; Physician Assistant Medical; Emergency Provider Emergency Medicine; PCP Nurse Practitioner Family
DX: R04.0 Epistaxis (principal); R05.9 Cough, unspecified; Z03.818 Encounter for observation for suspected exposure to other biological agents ruled out
CPT/HCPCS: 0241U; 36415; 71046; 80053; 84702; 85025; 85379; 85610; 85730; 99282; 99283

== ENCOUNTER 2023-10-25 15:01 | Outpatient (AMB) | payer OTHER, SELFPAY ==
[2023-10-25 15:03] VITALS: BP 98/64; PULSE 87; O2SAT 99; BMI 23.2
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
== END 2023-10-25 15:41 | disposition home or self-care (01) ==
DX: Z00.00 Encounter for general adult medical examination without abnormal findings (principal); R45.86 Emotional lability
CPT/HCPCS: 99395

== ENCOUNTER 2023-10-25 15:55 | Outpatient (REF) | payer OTHER, SELFPAY ==
[2023-10-25 17:48] LABS: Alanine Aminotransferase 12 U/L (0-31); Albumin Level 4.3 g/dL (3.5-5.0); Alkaline Phosphatase 74 U/L (39-117); Anion Gap 12 (12-20); Aspartate Amino Transferase 19 U/L (5-31); Bilirubin Total 0.1 mg/dL (0.0-1.0); Blood Urea Nitrogen 13 mg/dL (9-16); Calcium 9.6 mg/dL (8.4-10.2); Carbon Dioxide 24 mmol/L (22-29); Chloride 107 mmol/L (96-108); Estimated Glomerular Filt Rate > 60; Glucose Random 97 mg/dL (60-115); Potassium 3.8 mmol/L (3.3-5.1); Sodium 139 mmol/L (135-145); Total Protein 7.2 g/dL (6.5-8.0)
[2023-10-25 17:55] LABS: Free T4 (Free Thyroxine) 0.75 ng/dL (0.71-1.85); TSH reflex Free T4 1.56 uIU/mL (0.32-4.0)
[2023-10-25 18:12] LABS: Folate 13.6 ng/mL (> or = 4.0); Vitamin B12 447 pg/mL (200-900)
[2023-10-26 10:07] LABS: Follicle Stimulating Hormone 1.7 mIU/mL; Lutenizing Hormone 6.1 mIU/mL; Prolactin 6.5 ng/mL
[2023-10-29 16:33] LABS: Vitamin D 25-OH, D2 <4 ng/mL; Vitamin D 25-OH, D3 24 ng/mL; Vitamin D 25-OH, Total 24 ng/mL (30-100)
[2023-11-01 16:53] LABS: Estrogen 327 pg/mL
== END 2023-10-25 15:56 | disposition home or self-care (01) ==
LOC: HO.LAB 15:55
DX: Z00.00 Encounter for general adult medical examination without abnormal findings (principal); R45.86 Emotional lability
CPT/HCPCS: 36415; 80053; 82306; 82607; 82672; 82746; 83001; 83002; 84146; 84439; 84443; 85025

== ENCOUNTER 2023-11-26 16:35 | Outpatient (REF) | payer OTHER, SELFPAY ==
[2023-11-26 16:57] LABS: MANUAL DIFF FLAG NO
[2023-11-26 17:12] LABS: Basophils Percent Auto 0.3 % (0-2); Eosinophils Absolute Auto 0.2 X10*3/uL (0.0-0.4); Eosinophils Percent Auto 1.1 % (0-4); Hematocrit 37.5 % (37.0-47.0); Hemoglobin 12.1 g/dl (12.0-16.0); Imm Gran Abs Auto 0.04 X10*3/uL (0.00-0.03); Imm Gran Pct Auto 0.3 % (0.0-0.4); Lymphocytes Absolute Auto 1.8 X10*3/uL (1.2-4.9); Lymphocytes Percent Auto 14.1 % (20-40); Mean Corpuscular HGB Conc 32.3 g/dl (31.0-35.0); Mean Corpuscular Hemoglobin 27.5 pg (27.0-33.0); Mean Corpuscular Volume 85.2 fL (80.0-98.0); Mean Platelet Volume 12.7 fL (9.4-12.3); Monocytes Absolute Auto 0.6 X10*3/uL (0.1-1.2); Monocytes Percent Auto 4.7 % (2-11); Neutrophils Absolute Auto 10.4 x10*3/uL (2.0-8.3); Neutrophils Percent Auto 79.5 % (45-73); Platelet Count 204 X10*3/uL (160-400); Red Cell Distribution Width 13.2 % (11.0-16.0); White Blood Count 13.1 X10*3/uL (4.8-10.8)
[2023-11-27 04:25] LABS: HBS Num1 > 1000.00 mIU/mL (0-7.99); HBsAGNum1 0.71 S/CO (0.00-0.99); HIV AB/AG Nonreactive (Nonreactive); HIV Num 1 0.05 S/CO (0.00-0.99); Hepatitis B Core Antibody Nonreactive (Nonreactive); Hepatitis B Surface Antigen Negative (Negative); ~HepC Num1 0.12 S/CO (0.00-0.79); ~Hepatitis B Surface Antibody REACTIVE (Nonreactive); ~Hepatitis C Antibody Nonreactive (Nonreactive)
[2023-11-27 10:10] LABS: CT PCR NOT DETECTED (Not Detect.); NG PCR NOT DETECTED (Not Detect.)
[2023-11-28 12:53] LABS: RPR Rapid Plasma Reagin NON-REACTIVE (NON-REACTIVE)
== END 2023-11-26 16:36 | disposition home or self-care (01) ==
LOC: HO.LAB 16:35
DX: Z00.00 Encounter for general adult medical examination without abnormal findings (principal); Z11.3 Encounter for screening for infections with a predominantly sexual mode of transmission
CPT/HCPCS: 85025; 86592; 86704; 86706; 86803; 87340; 87389; 87491; 87591

== ENCOUNTER 2024-01-09 14:05 | Outpatient (AMB) | payer OTHER, SELFPAY ==
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
[2024-01-09 14:42] VITALS: BP 102/64; BMI 22.8
== END 2024-01-09 15:41 | disposition home or self-care (01) ==
PROVIDERS: Visit Provider Advanced Practice Midwife
DX: Z01.419 Encounter for gynecological examination (general) (routine) without abnormal findings (principal); Z11.3 Encounter for screening for infections with a predominantly sexual mode of transmission; Z30.09 Encounter for other general counseling and advice on contraception; F41.1 Generalized anxiety disorder
CPT/HCPCS: 99385

== ENCOUNTER 2024-01-09 14:05 | Outpatient (REF) | payer OTHER, SELFPAY ==
[2024-01-10 07:35] LABS: CT PCR NOT DETECTED (Not Detect.); NG PCR NOT DETECTED (Not Detect.)
[2024-01-10 10:15] LABS: HPV 16,18/45 See PAP report
[2024-01-10 11:45] LABS: Bacterial Vaginosis PCR POSITIVE (Negative); Candida Group PCR NOT DETECTED (Not Detect); Candida glab krusei PCR NOT DETECTED (Not Detect); Trichomonas vaginalis PCR NOT DETECTED (Not Detect)
== END 2024-01-09 14:06 | disposition home or self-care (01) ==
LOC: HO.LNP 14:05
PROVIDERS: Visit Provider Advanced Practice Midwife
DX: Z01.419 Encounter for gynecological examination (general) (routine) without abnormal findings (principal); F41.1 Generalized anxiety disorder; Z11.3 Encounter for screening for infections with a predominantly sexual mode of transmission; Z87.42 Personal history of other diseases of the female genital tract
CPT/HCPCS: 0352U; 87491; 87591; 87624; 88175; 99385

== ENCOUNTER 2024-01-20 17:24 | Emergency (ER) | payer OTHER, SELFPAY ==
--- NOTE | ~2024-01-20 | CT_ITS ---
EXAMINATION: CT HEAD WITHOUT CONTRAST CLINICAL INFORMATION: Headache status-post injury. COMPARISON: None available. TECHNIQUE: Contiguous axial imaging was performed from the skull base to vertex without intravenous administration of contrast. Multiplanar reformatted images are submitted. This CT examination was performed using dose optimization techniques as appropriate, variously including the following: *Automated exposure control *Adjustment of mA and/or kV according to patient size (this includes techniques or standardized protocols for targeted exams where dose is matched to indication/reason for exam; i.e. extremities or head) *Use of iterative reconstruction technique DLP: 1919 mGy-cm (head and cervical spine) FINDINGS: There is no acute intracranial hemorrhage or evidence of territorial infarction. No abnormal mass effect or midline shift is seen. Mcwillaims to white matter differentiation is well preserved. There is no abnormal attenuation within the brain parenchyma. The ventricles are normal in size. No extra-axial fluid collections are identified. The calvarium and scalp soft tissues are normal. The middle ear cavity and mastoid air cells are clear. The visualized paranasal sinuses are clear. CT/CT cervical spine wo IV con IMPRESSION: No acute intracranial pathology. EXAMINATION: CT CERVICAL SPINE WITHOUT CONTRAST CLINICAL INFORMATION: Pain status-post injury. COMPARISON: None available. TECHNIQUE: Contiguous axial imaging was performed through the cervical spine without intravenous administration of contrast. Multiplanar reformatted images are submitted. This CT examination was performed using dose optimization techniques as appropriate, variously including the following: *Automated exposure control *Adjustment of mA and/or kV according to patient size (this includes techniques or standardized protocols for targeted exams where dose is matched to indication/reason for exam; i.e. extremities or head) *Use of iterative reconstruction technique DLP: As above FINDINGS: Vertebral body heights are normal. There is mild reversal of the normal lordotic curvature. The disc spaces are well-maintained. No acute fracture or spondylolisthesis is seen. The posterior elements are intact. There is no prevertebral soft tissue swelling. The dens is intact. The bilateral lung apices are clear. IMPRESSION: Unremarkable examination. Fleischner guidelines were followed. Electronically signed by: Johny Hearn MD 01/20/2024 06:43 PM [facility] [place]
--- NOTE | ~2024-01-20 | CT_ITS ---
EXAMINATION: CT HEAD WITHOUT CONTRAST CLINICAL INFORMATION: Headache status-post injury. COMPARISON: None available. TECHNIQUE: Contiguous axial imaging was performed from the skull base to vertex without intravenous administration of contrast. Multiplanar reformatted images are submitted. This CT examination was performed using dose optimization techniques as appropriate, variously including the following: *Automated exposure control *Adjustment of mA and/or kV according to patient size (this includes techniques or standardized protocols for targeted exams where dose is matched to indication/reason for exam; i.e. extremities or head) *Use of iterative reconstruction technique DLP: 1919 mGy-cm (head and cervical spine) FINDINGS: There is no acute intracranial hemorrhage or evidence of territorial infarction. No abnormal mass effect or midline shift is seen. Mcwilliams to white matter differentiation is well preserved. There is no abnormal attenuation within the brain parenchyma. The ventricles are normal in size. No extra-axial fluid collections are identified. The calvarium and scalp soft tissues are normal. The middle ear cavity and mastoid air cells are clear. The visualized paranasal sinuses are clear. CT/CT head/brain wo IV con IMPRESSION: No acute intracranial pathology. EXAMINATION: CT CERVICAL SPINE WITHOUT CONTRAST CLINICAL INFORMATION: Pain status-post injury. COMPARISON: None available. TECHNIQUE: Contiguous axial imaging was performed through the cervical spine without intravenous administration of contrast. Multiplanar reformatted images are submitted. This CT examination was performed using dose optimization techniques as appropriate, variously including the following: *Automated exposure control *Adjustment of mA and/or kV according to patient size (this includes techniques or standardized protocols for targeted exams where dose is matched to indication/reason for exam; i.e. extremities or head) *Use of iterative reconstruction technique DLP: As above FINDINGS: Vertebral body heights are normal. There is mild reversal of the normal lordotic curvature. The disc spaces are well-maintained. No acute fracture or spondylolisthesis is seen. The posterior elements are intact. There is no prevertebral soft tissue swelling. The dens is intact. The bilateral lung apices are clear. IMPRESSION: Unremarkable examination. Fleischner guidelines were followed. Electronically signed by: Johny Hearn MD 01/20/2024 06:43 PM [facility] [place]
[2024-01-20 17:26] VITALS: BP 138/54; PULSE 104; RESP 20; TEMP 36.4; O2SAT 100; BMI 22.0
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
[2024-01-20 19:48] VITALS: BP 119/73; PULSE 77; RESP 16; O2SAT 99
[2024-01-20 20:17] VITALS: BP 119/73; PULSE 77; RESP 16; TEMP 36.9; O2SAT 99
== END 2024-01-20 20:18 | disposition home or self-care (01) ==
PROVIDERS: Emergency Provider Internal Medicine
DX: S00.03XA Contusion of scalp, initial encounter (principal); M54.2 Cervicalgia; R51.9 Headache, unspecified; W01.10XA Fall on same level from slipping, tripping and stumbling with subsequent striking against unspecified object, initial encounter; Y93.89 Activity, other specified; Y92.89 Other specified places as the place of occurrence of the external cause; Y99.8 Other external cause status
CPT/HCPCS: 70450; 72125; 99283; 99284

== ENCOUNTER 2024-03-08 10:19 | Emergency (ER) | payer OTHER, SELFPAY ==
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
[2024-03-08 10:27] VITALS: BP 105/67; PULSE 97; RESP 19; TEMP 36.6; O2SAT 99; BMI 21.6
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
[2024-03-08 14:28] VITALS: BP 122/78; PULSE 88
[2024-03-08] MEDS: Acetaminophen 325 MG TABLET 975 MG PO (14:47)
[2024-03-08] MEDS: diazePAM 2 MG TABLET PO (14:48)
[2024-03-08 14:49] VITALS: BP 122/78; PULSE 88; RESP 12; TEMP 36.8; O2SAT 95
== END 2024-03-08 14:49 | disposition home or self-care (01) ==
PROVIDERS: Emergency Provider Emergency Medicine
DX: S13.4XXA Sprain of ligaments of cervical spine, initial encounter (principal); V43.52XA Car driver injured in collision with other type car in traffic accident, initial encounter; R51.9 Headache, unspecified; Y93.89 Activity, other specified; Y92.414 Local residential or business street as the place of occurrence of the external cause; Y99.9 Unspecified external cause status
CPT/HCPCS: 70450; 72125; 99284

== ENCOUNTER → 2024-03-08 11:34 | Outpatient (BNV) | payer OTHER, SELFPAY | PROVIDERS: Emergency Provider Emergency Medicine; Visit Provider Radiology Vascular & Interventional Radiology | DX: M54.2 Cervicalgia (principal); R51.9 Headache, unspecified; V89.2XXA Person injured in unspecified motor-vehicle accident, traffic, initial encounter | CPT/HCPCS: 70450; 72125 ==

== ENCOUNTER 2024-03-12 09:59 | Outpatient (AMB) | payer OTHER, SELFPAY ==
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
[2024-03-12 10:20] VITALS: BP 110/70; PULSE 106; TEMP 36.3; O2SAT 99; BMI 22.7
== END 2024-03-12 10:52 | disposition home or self-care (01) ==
DX: M54.2 Cervicalgia (principal); M54.50 Low back pain, unspecified; M25.511 Pain in right shoulder; F41.1 Generalized anxiety disorder

== ENCOUNTER 2024-03-12 09:59 | Outpatient (REF) | payer OTHER, SELFPAY ==
--- NOTE | ~2024-03-12 | XR_ITS ---
EXAMINATION: XR SHOULDER, RIGHT CLINICAL INFORMATION: M25.511 - Pain in right shoulder COMPARISON: None available. TECHNIQUE: Four views of the right shoulder. FINDINGS: The bones and soft tissues are normal. No fracture. Glenohumeral and acromioclavicular alignment is anatomic with normal joint space. No abnormal soft tissue calcifications. XR/XR shoulder RT min 2V IMPRESSION: Unremarkable right shoulder exam Electronically signed by: Matt Murillo MD 03/12/2024 11:30 AM EST
--- NOTE | ~2024-03-12 | XR_ITS ---
EXAMINATION: XR LUMBOSACRAL SPINE CLINICAL INFORMATION: M54.50 - Low back pain, unspecified COMPARISON: None available. TECHNIQUE: Three views of the lumbosacral spine. FINDINGS: There is normal lumbar lordosis. The vertebral heights, alignment and disc heights are normal. There is no visible acute fracture, dislocation or lytic process seen. The soft tissues are normal. SI joints are normal. There is mild to moderate scattered stool in colon. XR/XR lumbar spine 2-3V IMPRESSION: Unremarkable lumbar spine examination. Electronically signed by: Matt Murillo MD 03/12/2024 11:29 AM [facility]
== END 2024-03-12 10:00 | disposition home or self-care (01) ==
LOC: HO.XRAY 09:59
DX: M25.511 Pain in right shoulder (principal); M54.50 Low back pain, unspecified
CPT/HCPCS: 72100; 73030

== ENCOUNTER → 2024-03-12 11:00 | Outpatient (BNV) | payer OTHER, SELFPAY | PROVIDERS: Visit Provider Radiology Diagnostic Radiology | DX: M54.50 Low back pain, unspecified (principal); M25.511 Pain in right shoulder | CPT/HCPCS: 72100; 73030 ==

== ENCOUNTER 2024-05-21 09:21 | Outpatient (AMB) | payer OTHER, SELFPAY ==
--- NOTE | 2024-05-21 09:27 | MHC.PC.OV ---
Vital Signs 05/21/24 09:28 Height 5 ft 5 in Weight 141 lb 6 oz BMI 23.5 BP 118/60 Blood Pressure Location Lt brachial Position Sitting Pulse 107 H Pulse Source Pulse Oximeter Temp 97.5 F Temp Source Temporal Artery Scan Pulse Oximetry (%) 99 Oxygen Delivery Method Room Air Intake Visit Reasons: sore nipples Intake Note: Patient is here to follow up on Sore nipples. Alarm Mechanic Required: No Content Director: Not Required per policy Accompanied by: Self / Same As Patient Allergies No Known Allergies Allergy (Verified 05/21/24 09:39) Medication List - Last Reconciled 05/21/24 by Dorothea Montejo PA-C ascorbate calcium (vitamin C) 500 mg PO DAILY cholecalciferol (vitamin D3) 25 mcg PO DAILY cranberry 500 mg PO BID magnesium aspart,citrate,oxide 400 mg PO .qd Tobacco use date assessed: 05/21/24 Dental Screening Dental Screen Date: 03/12/24 HPI sore nipples HPI Details 24-year-old female with past medical history of generalized anxiety disorder and cystic acne last seen 02/2024 coming in for acute problem.?? The patient is a 24-year-old female presenting with breast pain and irregular menstrual bleeding. She experienced irregular bleeding after Depo-Provera cessation, with almost continuous bleeding in April, which resolved by May. Following recent medical tattooing on her nipples, she has reported breast pain affecting the whole area for two to three weeks, unrelated to touch, with no discharge or visible redness. She had her procedure done 4 weeks ago and was initially pain-free for 2 weeks and pain began 2 weeks from today. She also has a history of neck and shoulder pain, improved with physical therapy, while reporting mild back pain and has PT eval today for back pain. [facility] Medical History Lipoma of buttock Positive PPD Mild depression Generalized anxiety disorder delivery delivered No known health problems Surgical History History of delivery Family History Father Lung cancer HTN (hypertension) Diabetes Mother No problems noted. Social History Housing: Apartment Alcohol intake: never Patient Tobacco Use Status: Never used Tobacco Tobacco use type: Cigarette e-Cigarette/Vaping Use: Never Used Second Hand Smoke Exposure: No service: No Current occupational status: employed Current occupation: Part-Time. Cognitive needs: No Hearing needs: No Vision needs: No Female Reproductive History Menstrual Age of Menarche: 12 Questionnaire Thrive Questionnaire Date Thrive assessed: 03/12/24 JOVON-7 AMB Questionnaire JOVON-7 Date JOVON - 7 assessed: 03/12/24 Source: Developed by Drs. Josué Schwartz, Donna Bro, Derek Mcnamara and colleagues, with an educational gen from [employer]. Review of Systems Const Denies body aches, Denies chills, Denies fever(s) and Denies poor appetite Eyes Reports no additional complaints Card Denies chest pain, Denies lightheadedness and Denies dyspnea Resp Denies cough and Denies dyspnea GI Reports no additional complaints Reports no additional complaints Musc Reports no additional complaints and Denies abnormal gait Skin/Breast Details: bilateral breast pain Reports system reviewed and no additional complaints, except as documented Neuro Denies abnormal gait Psych Reports no additional complaints Physical exam (Primary Care) Vital Signs: Last Vital Signs Temp 97.5 F 05/21/24 09:28 Pulse 107 H 05/21/24 09:28 BP 118/60 05/21/24 09:28 Pulse Ox 99 05/21/24 09:28 Oxygen Delivery Method Room Air 05/21/24 09:28 BMI result Body Mass Index 23.5 Tobacco/Smoking Status: Tobacco use Status Tobacco use date assessed 05/21/24 05/21/24 09:33 Patient Tobacco Use Status Never used Tobacco 05/21/24 09:33 Tobacco use type Cigarette 05/21/24 09:33 e-Cigarette/Vaping Use Never Used 05/21/24 09:33 Thrive Assessment: Date of Thrive Assessment Date Thrive assessed 03/12/24 05/21/24 09:33 Const General: cooperative, healthy appearing, comfortable and no acute distress Orientation/consciousness: patient oriented x3 HENMT Head: Yes normocephalic Ears: hearing grossly normal bilaterally General nose exam: Normal external nose present Eyes General: appearance normal, both eyes and all related structures Conjunctivae: conjunctivae normal Neck Neck: Yes full ROM and Yes no lymphadenopathy Chest Other: No nipple drainage or dimpling. No erythema or overlying skin changes of bilateral breasts. Tenderness to palpation of bilateral breasts Resp Effort & Inspection: normal respiratory effort Auscultation: clear to auscultation bilaterally, no crackles, no rales, no rhonchi and no wheezes Cardio Rate: regular rate Rhythm: regular rhythm Skin General skin exam: no rashes or lesions noted Neuro General: patient oriented x3 Gait exam (Neuro): Normal gait present Extrem General: Yes normal to inspection, Yes full ROM and No edema Psych Affect: normal affect Attitude: cooperative Insight: Good insight present (Psych) Judgement: Good judgement present (Psych) Coding Level of Care Code Est Pt Level 4 (55593) Diagnoses Breast pain N64.4 Right shoulder pain M25.511 Low back pain M54.50 Neck pain M54.2 Irregular menses N92.6 Assessment & Plan Assessment & Plan (1) Breast pain: Code(s): N64.4 - Mastodynia Category: Medical Plan: Patient having pain to palpation of bilateral breasts, no overt evidence of infection. Breasts without erythema, warmth or nipple drainage. Patient was initially pain-free after micro needling however pain did began 2 weeks ago. Given the recent procedure concern for possible infection plan to treat with Augmentin twice daily for 7 days. If pain persists after antibiotics plan to obtain ultrasound and mammogram of bilateral breasts. (2) Right shoulder pain: Code(s): M25.511 - Pain in right shoulder Category: Medical Plan: Shoulder pain has improved with physical therapy. (3) Low back pain: Code(s): M54.50 - Low back pain, unspecified Category: Medical Plan: Patient having mild low back pain does have physical therapy evaluation later today and will undergo PT for her back pain. (4) Neck pain: Code(s): M54.2 - Cervicalgia Category: Medical Plan: Neck pain has resolved with PT. (5) Irregular menses: Code(s): N92.6 - Irregular menstruation, unspecified Category: Medical Plan: Patient reporting irregular menses after the discontinuation of Depo-Provera injection. She does mentioned in his recently become more normal continue to monitor and follow up with gynecology if menses becomes irregular. Plan This note was constructed using voice recognition software. While every effort has been made to ensure accuracy and dining room tables set up attendant, still areas may have been included sometimes these areas may affect the content or meeting of the given symptoms. Total time spent caring for the patient today was 20 minutes. This includes time spent before the visit reviewing the chart, time spent during the visit, and time spent after the visit and documentation. Patient was informed and verbally consented to the use of an ambient scribe for clinic note documentation during this visit. Medications: New amoxicillin-pot clavulanate 875-125 mg 1 tab PO BID 7 days 14 tabs 0RF
[2024-05-21 09:28] VITALS: BP 118/60; PULSE 107; TEMP 36.4; O2SAT 99; BMI 23.5
== END 2024-05-21 10:12 | disposition home or self-care (01) ==
LOC: HO.HMCH 09:21
DX: N64.4 Mastodynia (principal); M25.511 Pain in right shoulder; M54.50 Low back pain, unspecified; M54.2 Cervicalgia; N92.6 Irregular menstruation, unspecified

== ENCOUNTER → 2024-05-21 09:21 | Outpatient (BNVA) | payer OTHER, SELFPAY | DX: N64.4 Mastodynia (principal); M25.511 Pain in right shoulder; M54.50 Low back pain, unspecified; M54.2 Cervicalgia; N92.6 Irregular menstruation, unspecified | CPT/HCPCS: 99212 ==

== ENCOUNTER 2024-06-12 11:00 | Outpatient (RCR) | payer OTHER, SELFPAY ==
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
--- NOTE | 2024-07-15 12:37 | MHC.PT.DC ---
[facility] [place] Office [place] Office [place] Office [address] Luba Jimenez [address] [phone] F: [phone] F: [phone] F: [phone] F: [phone] Physical Therapy Discharge Report Diagnosis: This is a 24 yo female presenting to skilled PT With a script for neck pain and low back pain. Date of Surgery: Date of Evaluation: 03/24/24 Date of Discharge: 07/15/24 Treatments to Date: 17 Cancellations to Date: 0 No Shows to Date: 0 Discharge Status: Achieved Goals Improved Function Independent with HEP Patient Elected to Stop Discharge Summary: Patient came to 17 sessions of PT in regards to multiple body aches. At the time of DC she was not feeling any more pain and was I in her program. She has returned to normal ADLs, functional movements and daily life. She has met her goals and skilled PT is no longer indicated. DC to HEP. Electronically signed by: Nicole Gutiérrez, PT Please sign and return to therapist. Thank you for your referral.
== END 2024-07-15 12:37 | disposition home or self-care (01) ==
LOC: HO.PTCHIC 11:00
DX: M54.2 Cervicalgia (principal); M54.50 Low back pain, unspecified; M25.511 Pain in right shoulder
CPT/HCPCS: 97110; 97140; 97162; 97164

== ENCOUNTER 2024-07-07 19:26 | Emergency (ER) | payer OTHER, SELFPAY ==
[2024-07-07 19:55] VITALS: BP 108/66; PULSE 93; RESP 20; TEMP 36.7; O2SAT 98; BMI 24.0
--- NOTE | 2024-07-07 19:55 | ED.GENADULT ---
HPI - General Adult General Chief complaint: Urogenital-Female Stated complaint: Stomach Pain, urgency to urinate, unable to go Time Seen by Provider: 07/07/24 21:40 Source: patient Mode of arrival: ambulatory Limitations: no limitations History of Present Illness ED Provider: magalie duval np HPI narrative: patient is a 24-year-old female who presents emergency department for evaluation. She reports since yesterday she has been experiencing urinary symptoms endorsing dysuria, urinary frequency, and mild urge incontinence. She states that after voiding she feels as though she has not emptied her bladder full. she denies any hematuria. She denies any back pain. Denies fevers or chills. Denies nausea or vomiting. Denies abdominal pain. denies abnormal vaginal discharge, vaginal itching or burning. Denies pelvic pain. Denies concern for endorsing last menstrual period 06/28/2024. denies overt concern for sexually transmitted infections but is amenable to having testing. Related Data Previous Rx's ?Medication ?Instructions ?Recorded cholecalciferol (vitamin D3) 25 25 mcg PO DAILY #30 caps 03/03/24 mcg (1,000 unit) capsule cranberry 500 mg capsule 500 mg PO BID #60 caps 03/03/24 ascorbate calcium (vitamin C) 500 500 mg PO DAILY #30 tabs 04/17/24 mg tablet magnesium aspart,citrate,oxide 400 mg PO .qd #30 caps 04/17/24 amoxicillin 875 mg-potassium 1 tab PO BID 7 days #14 tabs 05/21/24 clavulanate 125 mg tablet fexofenadine 180 mg tablet 180 mg PO DAILY #30 tabs 06/11/24 ([facility] Allergy) cefuroxime axetil 250 mg tablet 250 mg PO BID #9 tabs 07/07/24 Allergies Allergy/AdvReac Type Severity Reaction Status Date / Time No Known Allergies Allergy Verified 07/07/24 19:56 Review of Systems Review of Systems: Yes all other systems are reviewed and are negative PMFSH Past Medical History Attestation statement: The following information was validated with the patient. Source: old records reviewed Medical History Lipoma of buttock Positive PPD Mild depression Generalized anxiety disorder delivery delivered No known health problems Surgical History History of delivery Family History Family History Father Lung cancer HTN (hypertension) Diabetes Mother No problems noted. Social History Social History Housing: Apartment Alcohol intake: never Patient Tobacco Use Status: Never used Tobacco Tobacco use type: Cigarette e-Cigarette/Vaping Use: Never Used Second Hand Smoke Exposure: No Advance Directives: No Advance Directives Information Provided: No service: No Current occupational status: employed Current occupation: Part-Time. Cognitive needs: No Hearing needs: No Vision needs: No Physical Exam ED Vital Signs: Vital Signs - 24 hr 07/07/24 19:55 07/07/24 21:40 07/07/24 23:25 Temperature 98.1 F 98.2 F 98.7 F Pulse Rate 93 74 74 Respiratory Rate 20 15 18 Blood Pressure 108/66 106/59 L 98/58 L Pulse Oximetry 98 100 99 Oxygen Delivery Method Room Air Room Air Room Air 07/07/24 23:33 07/08/24 00:21 07/08/24 00:35 Temperature 98.7 F Pulse Rate 83 83 Respiratory Rate 18 18 Blood Pressure 116/62 106/63 106/63 Pulse Oximetry 99 99 Oxygen Delivery Method Room Air Room Air BMI result Body Mass Index 24.0 Appearance: Alert.?Oriented to person, place and time. No acute distress.?Normal affect. CVS: Heart sounds normal. Normal heart rate and rhythm.? Pulses normal.?? Respiratory: No respiratory distress.? Lung sounds clear to auscultation bilaterally?? Abdomen: Soft and non-tender. Normoactive bowel sounds. No CVA tenderness. Skin: Skin warm and dry.? Normal skin color.? ? Extremities: No lower extremity edema.? No calf ttp? Neuro: Moves all extremities spontaneously. Sensation intact bilaterally. Ambulates with normal steady gait. Course Course Course Narrative: RME performed by Sushma Vicente PA-C. Patient is a 24 year old assigned female at presenting to the emergency department with dysuria and vaginal irritation / pain. Detailed physical exam and review of systems are deferred to the tool crib attendant. Labs ordered. Patient placed back in the waiting room pending room availability and results. Medications Administered Discontinued Medications Generic Name Dose Route Start Last Admin Trade Name Po PRN Reason Stop Dose Admin Acetaminophen 975 mg 07/07/24 23:30 07/07/24 23:39 Acetaminophen 325 Mg Tablet PO 07/07/24 23:31 975 mg ONCE ONE Administration Cefuroxime Axetil 250 mg 07/07/24 23:30 07/07/24 23:39 Cefuroxime Axetil 250 Mg Tablet PO 07/07/24 23:31 250 mg ONCE ONE Administration Phenazopyridine HCl 100 mg 07/07/24 23:30 07/07/24 23:39 Phenazopyridine Hcl 100 Mg Tablet PO 07/07/24 23:31 100 mg ONCE ONE Administration Medical Decision Making Medical Decision Making [facility] Narrative: Patient is a 24 year old female who presents emergency department for evaluation of urinary symptoms as per HPI. Overall she is well-appearing, non-toxic, afebrile. She has no hypotension or tachycardia. She has a benign abdominal examination. She has no CVA tenderness to suggest renal colic secondary to pyelonephritis or nephrolithiasis/ oculi. No history of renal stones. Urinalysis was concerning for urinary tract infection, hCG is negative She will not consistent with ectopic . She has been associated vaginal symptoms / pelvic pain. Sent testing for chlamydia / gonorrhea in addition to bacterial vaginosis panel of which she elected to perform self swabs for. Denies overt concern for sexually transmitted infection to suggest TOA, benign abdominal examination suspicion for PID, ovarian torsion. he will be started on antibiotic received 1st dose in the emergency department and sent remainder prescription to pharmacy. Discussed strict return precautions. All questions answered. Stable for discharge Differential Diagnosis Differential Diagnoses: The differential diagnosis associated with the presentation includes ( see narrative above) Lab Data [facility] Lab Attestation statement: I reviewed the patient's lab results. ( see narrative above) Labs: Lab Results 07/07/24 Range/Units 20:02 Urine Color Yellow Urine Appearance Clear Urine pH 6.5 (5.0-9.0) Ur Specific [place] 1.015 (1.005-1.025) Urine Protein Negative (Neg-Trace) mg/dL Urine Glucose (UA) Negative (Negative) mg/dL Urine Ketones Negative (Negative) mg/dL Urine Blood Large (3+) H (Negative) Urine Nitrite Negative (Negative) Ur Leukocyte Esterase Moderate (2+) H (Negative) Urine RBC >20 H (0-2) /HPF Urine WBC >50 H (0-5) /HPF Ur Squamous Epith Cells 3-5 (0-2) /HPF Urine Bacteria None Seen (None Seen) Hyaline Casts 0-2 (0-2) /LPF Urine Test NEGATIVE (NEGATIVE) External Record Review External record reviewed: Outpatient record Tests considered The following testing was considered but not selected: see narrative CT AP deferred Prescription Management I considered prescription management with: Pain Medication and Antibiotic Discharge Plan Discharge Clinical Impression: Urinary tract infection Patient Disposition: Home, Self-Care Instructions: Urinary Tract Infection in Women (ED) Prescriptions: New cefuroxime axetil 250 mg tablet 250 mg PO BID Qty: 9 0RF No Action cranberry 500 mg capsule 500 mg PO BID Qty: 60 0RF Rx Instructions: administer with meals cholecalciferol (vitamin D3) 25 mcg (1,000 unit) capsule 25 mcg PO DAILY Qty: 30 4RF ascorbate calcium (vitamin C) 500 mg tablet 500 mg PO DAILY Qty: 30 4RF magnesium aspart,citrate,oxide 400 mg magnesium capsule 400 mg PO .qd Qty: 30 2RF fexofenadine [[facility]chan Allergy] 180 mg tablet 180 mg PO DAILY Qty: 30 2RF amoxicillin-pot clavulanate 875-125 mg tablet 1 tab PO BID 7 Days Qty: 14 0RF Referrals: Physician,Unknown J [Primary Care Provider] - Interventions: ED Discharge Assessment Last Done: 07/08/24 00:35 Discharge Date/Time: 07/08/24 00:36 Print Language: Polish
[2024-07-07 20:09] LABS: Appearance Urine Clear; Color Urine Yellow; Glucose Urine UA Negative (Negative); Leukocyte Esterase Urine Moderate (2+) (Negative); Nitrite Urine Negative (Negative); PH 6.5 (5.0-9.0); Specific Gravity - Urine 1.015 (1.005-1.025); UMIC TRIGGER UACC YES; Urine Blood Large (3+) (Negative); Urine Ketones Negative (Negative); Urine Protein Negative (Neg-Trace)
[2024-07-07 20:14] LABS: Bacteria Urine None Seen (None Seen); Hyaline Casts Urine 0-2 /LPF (0-2); RBC Urine >20 /HPF (0-2); UACC Culture Trigger YES; WBC Urine >50 /HPF (0-5)
[2024-07-07 21:40] VITALS: BP 106/59; PULSE 74; RESP 15; TEMP 36.8; O2SAT 100
--- NOTE | 2024-07-07 22:07 | PC.NURSE ---
Patient presents with UTI symptoms such as burning, urgency, and frequency. PMH: Lipoma of buttock, Positive PPD, Mild depression, Generalized anxiety disorder. Respirations even and non-labored. Abdomen soft, non-tender with positive bowel sounds.
[2024-07-07 23:25] VITALS: BP 98/58; PULSE 74; RESP 18; TEMP 37.1; O2SAT 99
[2024-07-07 23:25] LABS: UPreg QC Valid YES; Urine Pregnancy NEGATIVE (NEGATIVE)
[2024-07-07 23:33] VITALS: BP 116/62
[2024-07-07] MEDS: Acetaminophen 325 MG TABLET 975 MG PO (23:39)
[2024-07-07] MEDS: cefuroxime axetiL 250 MG TABLET PO (23:39)
[2024-07-07] MEDS: Phenazopyridine HCL 100 MG TABLET PO (23:39)
[2024-07-08 00:21] VITALS: BP 106/63; PULSE 83; RESP 18; O2SAT 99
--- NOTE | 2024-07-08 00:33 | PC.NURSE ---
Medicated per mar, Reviewed discharge instructions with pt, pt verbalized understanding, no sign of distress. pt ambulated with a steady gait.
[2024-07-08 00:35] VITALS: BP 106/63; PULSE 83; RESP 18; TEMP 37.1; O2SAT 99
[2024-07-08 03:26] LABS: CT PCR NOT DETECTED (Not Detect.); NG PCR NOT DETECTED (Not Detect.)
[2024-07-08 11:04] LABS: Bacterial Vaginosis PCR NEGATIVE (Negative); Candida Group PCR NOT DETECTED (Not Detect); Candida glab krusei PCR NOT DETECTED (Not Detect); Trichomonas vaginalis PCR NOT DETECTED (Not Detect)
== END 2024-07-08 00:36 | disposition home or self-care (01) ==
PROVIDERS: Nurse Practitioner Family; Physician Assistant Medical; Emergency Provider Emergency Medicine
DX: N39.0 Urinary tract infection, site not specified (principal); R30.0 Dysuria
CPT/HCPCS: 81001; 81025; 81515; 87086; 87491; 87591; 99283; 99285

== ENCOUNTER 2024-07-31 09:48 | Outpatient (AMB) | payer OTHER, SELFPAY ==
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
[2024-07-31 10:09] VITALS: BMI 23.7
== END 2024-07-31 10:33 | disposition home or self-care (01) ==
LOC: HO.HOS 09:49
PROVIDERS: Visit Provider Physician Assistant
DX: S40.011A Contusion of right shoulder, initial encounter (principal)
CPT/HCPCS: 99204

== ENCOUNTER → 2024-07-31 09:48 | Outpatient (BNVA) | payer OTHER, SELFPAY | PROVIDERS: Visit Provider Physician Assistant ==

== ENCOUNTER 2024-09-01 17:40 | Outpatient (REF) | payer OTHER, SELFPAY ==
--- NOTE | ~2024-09-01 | MR_ITS ---
CLINICAL HISTORY: S40.011A - Contusion of right shoulder, initial encounter MRI right shoulder without contrast Comparison: None provided Findings: Rotator cuff tendons are intact without tear. Biceps tendon normally positioned without tear or displacement. Glenoid labrum is within normal limits. No joint effusion is identified. No acute bony signal abnormality noted. Impression: No significant abnormality This document has been electronically signed by: Reyes Sethi MD on 09/02/2024 22:06:31
== END 2024-09-01 17:41 | disposition home or self-care (01) ==
LOC: HO.MRI 17:40
PROVIDERS: Visit Provider Physician Assistant
DX: S40.011A Contusion of right shoulder, initial encounter (principal)
CPT/HCPCS: 73221

== ENCOUNTER → 2024-09-01 17:49 | Outpatient (BNV) | payer OTHER, SELFPAY | PROVIDERS: Visit Provider Radiology Diagnostic Radiology | DX: S40.011A Contusion of right shoulder, initial encounter (principal) | CPT/HCPCS: 73221 ==

== ENCOUNTER 2024-09-09 10:04 | Outpatient (AMB) | payer OTHER, SELFPAY ==
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
[2024-09-09 10:07] VITALS: BMI 24.0
== END 2024-09-09 10:22 | disposition home or self-care (01) ==
LOC: HO.HOS 10:04
PROVIDERS: Visit Provider Physician Assistant
DX: M25.511 Pain in right shoulder (principal)
CPT/HCPCS: 99213

== ENCOUNTER 2025-01-08 10:15 | Outpatient (AMB) | payer OTHER, SELFPAY ==
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
[2025-01-08 10:24] VITALS: BMI 24.0
== END 2025-01-08 10:38 | disposition home or self-care (01) ==
PROVIDERS: Visit Provider Physical Medicine & Rehabilitation
DX: G54.0 Brachial plexus disorders (principal)
CPT/HCPCS: 99204

== ENCOUNTER 2025-01-08 10:42 | Outpatient (REF) | payer OTHER, SELFPAY ==
[2025-01-08 14:28] LABS: Folate 16.1 ng/mL (> or = 4.0); Vitamin B12 469 pg/mL (200-900)
[2025-01-12 22:24] LABS: Anti Nuclear Antibody Screen NEGATIVE (NEGATIVE)
== END 2025-01-08 10:43 | disposition home or self-care (01) ==
LOC: HO.10HDL 10:42
PROVIDERS: Visit Provider Physical Medicine & Rehabilitation
DX: Z01.84 Encounter for antibody response examination (principal); G54.0 Brachial plexus disorders
CPT/HCPCS: 36415; 82306; 82607; 82746; 86038; 86431